=== PATIENT | female | born 1955 | race Caucasian/White ===

== ENCOUNTER 2019-03-25 08:33 | Emergency (ER) | payer OTHER ==
[~2019-03-25] VITALS: Ht 154.9 cm; Wt 72.6 kg
[~2019-03-25 08:33] MED LIST: HYDROGEN PEROX473 ML MC; NKM
--- NOTE | 2019-03-25 08:51 | Emergency Room Report ---
History of Present Illness General Chief Complaint: Upper Respiratory Illness Source: Patient Present Illness HPI Patient is a 63-year-old female presents after increased cough and difficulty with breathing. She reports having no prior medical history. She states has been sick for approximately 2 weeks. Primarily nonproductive cough with intermittent phlegm production. She denies being a smoker. She denies any cardiac cardiac history reports having taken eghn-sal-vqulbwm cough medications without improvement. She denies any leg pain or swelling. Allergies: Coded Allergies: No Known Allergies (Unverified , 07/25/14) Patient History Past Medical History: see triage record Last Menstrual Period: na Reviewed Nursing Documentation: PMH: Agreed; PSxH: Agreed Nursing Documentation-PMH Past Medical History: No History, Except For Review of Systems All Other Systems: negative except mentioned in HPI Physical Exam Vital Signs Date Time Temp Pulse Resp B/P (MAP) Pulse Ox O2 Delivery O2 Flow Rate FiO2 03/25/19 08:35 97.5 74 20 109/82 (91) 95 Room Air General Appearance: well appearing, no apparent distress, alert, GCS 15, non- toxic Head: normocephalic, atraumatic ENT: hearing grossly normal, normal voice Neck: full range of motion, supple Respiratory: no respiratory distress, speaking full sentences, wheezing Cardiovascular #1: normal inspection, no edema Gastrointestinal: normal inspection, soft Musculoskeletal: normal inspection, no calf tenderness Neurologic: alert, motor strength/tone normal, 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 Differential diagnosis include was not limited to pneumonia, bronchitis, upper respiratory infection among others. X-ray imaging was ordered due to patient's persistent cough. Patient does show some wheezing on lung exam consistent with a bronchitis. Patient is afebrile and this appears to be viral in nature.Patient does still show some evidence of oral lip lesions. Should be given prescription for acyclovir. She is also given a prescription for albuterol. She is advised to follow-up with her primary care physician for recheck. Chest x-ray 1 view showed normal cardiac size without any definite infiltrate. Patient was given breathing treatment with improvement in her symptoms. She appears to have some viral bronchitis and appears stable for discharge. Patient will be patient was advised to follow-up with her primary care physician 1 to 2 days. She is to return if worse. Last Vital Signs Date Time Temp Pulse Resp B/P (MAP) Pulse Ox O2 Delivery O2 Flow Rate FiO2 03/25/19 08:35 97.5 74 20 109/82 (91) 95 Room Air Status: improved Disposition: HOME, SELF-CARE Condition: Stable Scripts Guaifenesin* (ADULT WAL-TUSSIN*) 100 Mg/5 Ml Liquid 5 ML ORAL Q4H, #120 ML Prov: Shaheen Mcgowan MD 03/25/19 Acyclovir* (ZOVIRAX*) 800 Mg Tablet 800 MG ORAL FIVE TIMES A DAY, #35 TAB Prov: Shaheen Mcgowan MD 03/25/19 Albuterol Sulfate* (ALBUTEROL SULFATE MDI*) 8.5 Gm Hfa.aer.ad 2 PUFF INH Q6H, #1 INH 0 Refills Prov: Shaheen Mcgowan MD 03/25/19 Shaheen Mcgowan MD Mar 25, 2019 08:51
[2019-03-25] MEDS ORDERED: ALBUTEROL SULF8.5 GM INH (08:53)
[2019-03-25] MEDS ORDERED: ACYCLOVIR800 MG ORAL (08:53)
[2019-03-25] MEDS ORDERED: ADULT WAL-100 MG/5 M ORAL (08:53)
[2019-03-25 08:56] VITALS: BP 115/81
[2019-03-25] MEDS ORDERED: Albuterol/Ipratropium 3ml neb HHN ONE (09:00)
[2019-03-25 09:47] VITALS: BP 112/58
--- NOTE | 2019-03-25 14:32 | Diagnostic Imaging Report ---
Indication: Shortness of breath Technique: One view of the chest Comparison: none Findings: There is a band of atelectasis at right infrahilar region. Lungs and pleural spaces are otherwise clear. The heart size is normal. Impression: Right basilar atelectasis. No acute process otherwise
== END 2019-03-25 09:47 | disposition home or self-care (01) ==
LOC: EMR 08:54
DX: J20.9 Acute bronchitis, unspecified (principal)
CPT/HCPCS: 71045; 99284; J7620